=== PATIENT | male | born 1970 | race Caucasian/White ===

== ENCOUNTER 2018-07-21 23:33 | Emergency (ER) | payer BC, SELFPAY ==
[2018-07-21 23:34] VITALS: BP 125/81; PULSE 92; RESP 18; TEMP 36.8; O2SAT 98; BMI 30.8
[2018-07-22] MEDS: Ketorolac 30 MG/ML Syringe IV (00:15)
[2018-07-22] MEDS: 0.9% Normal Saline 1,000 ML 1000 ML IV (00:15)
[2018-07-22 00:21] LABS: Bacteria 0 SEEN /hpf (None Seen); Mucous, Urine 0 SEEN /hpf (<or=2+); Squamous Epithelial Cells - UA 0 SEEN /hpf (0-5)
[2018-07-22 00:22] LABS: Color, Urine Yellow (Yellow); Glucose, Dipstick Normal (Normal); Ketone-Dipstick Negative (Negative); Leukocyte Esterase-Dipstick Negative /ul (Negative); Nitrite-Dipstick Negative (Negative); Occult Blood-Urine 50 /ul (Negative); Protein-Dipstick Negative (Negative); Urine Bilirubin Dipstick Negative (Negative); Urine Clarity Clear (Clear); Urine Urobilinogen Normal (Normal); Urine pH 6.5 (5.0 - 8.0)
[2018-07-22 00:25] LABS: Absolute Lymphocyte Count 1.76 X10^3/ul (0.83-4.51); Absolute Neutrophil Count 9.6 X10^3/uL (2.0-7.7); Basophil# 0.02 X10^3/uL; Basophil% 0.2 % (0-1); Eosinophil# 0.08 X10^3/uL; Eosinophils% 0.6 % (0-5); Hematocrit 46.9 % (40-54); Hemoglobin 15.6 g/dl (13.0-16.5); Lymphocyte # 1.76 X10^3/ul (4.0); Lymphocyte % 14.1 % (19-41); Mean Corp Hgb Conc 33.3 g/gl (32-36); Mean Corpuscular Hgb 29.8 pg (27.0-32.0); Mean Corpuscular Volume 89.5 fL (80-94); Mean Platelet Vol. 8.8 fl (6.2-12.0); Monocyte# 0.94 X10^3/uL; Monocyte% 7.6 % (0-10); Neutrophil # 9.62 X10^3/uL (2.7-7.7); Neutrophil % 77.3 % (47-70); POSITIVE COUNT NO; POSITIVE DIFFERENTIAL NO; POSITIVE MORPHOLOGY NO; Platelet Count 289 K/mm3 (150-450); RBC Distribution Width SD 42.8 fl (35.1-43.9); Red Blood Count 5.24 M/mm3 (4.6-6.2); White Blood Count 12.5 K/mm3 (4.4-11.0)
[2018-07-22 00:29] LABS: Red Blood Cells-Urine 5-10 SEEN /hpf (0-5); White Blood Cells 0-5 SEEN /hpf (0-5)
[2018-07-22 00:41] LABS: Anion Gap 5 (5-15); BUN 10 mg/dL (7-18); BUN/Creat Ratio 10.5 RATIO (10-20); Chloride 108 mmol/L (98-107); Creatinine, Serum 0.95 mg/dL (0.70-1.30); EST Glomerular Filtration Rate 90 mL/min (>60); Est Glom Filt Rate - Afr Amer 109 mL/min (>60); Estimated Creatinine Clearance 97.16 ml/min; Glucose 101 mg/dL (74-106); Sodium Level 140 mmol/L (136-145)
--- NOTE | 2018-07-22 01:16 | ED.VISSUMM ---
- ER Visit Summary Date of Service: 07/22/18 Chief Complaint: Flank pain History of Present Illness: The patient is a 47 M who presents with flank pain. It began about 6 hours ago. It is intermittent, it waxes and wanes. He has a history of prior similar symptoms but it always resolved on its own. It was severe at home at 9 out of 10. However currently he only complains of mild pain. No urinary symptoms such as dysuria frequency urgency. No nausea vomiting diarrhea. Physical Examination: Afebrile vitals normal Moist mucous membranes No distress Heart regular rate and rhythm Lungs are clear Abdomen soft nontender nondistended Alert No CVA or flank tenderness Test Results: Labs notable for white blood cell count 12.5. Urinalysis shows 50 blood, 5-10 RBCs. Emergency Department Course and Treatment: Patient was treated here with IV fluids and Toradol. CT the flank shows mild left hydronephrosis and proximal hydroureter due to a 4 mm mid ureteral calculus. On reevaluation he is pain-free. I discussed expectant management and supportive care. He was given prescriptions for Percocet and Flomax. He was referred to urology for outpatient follow-up. He understands to return for new or worsening symptoms. All questions answered bedside. Patient discharged. Treatment Plan: [] Disposition: Discharge Impression: Ureterolithiasis This note was generated with [employer] dictation software. It may contain incorrect words, spelling, and punctuation that were not noted in review of the chart prior to signing ED Disposition - Plan for ED Patient: Referrals: Primo Velasquez MD [Primary Care Provider] -
--- NOTE | 2018-07-22 01:18 | ED.DEP ---
ED Disposition - Plan for ED Patient: Instructions: ED [facility] Prescriptions: Oxycodone HCl/Acetaminophen [Percocet 5/325] 1 tab PO Q6H PRN PRN 3 Days #12 tab PRN Reason: Pain Tamsulosin HCl [Flomax] 0.4 mg PO DAILY #14 cap Referrals: Primo Velasquez MD [Primary Care Provider] -
--- NOTE | 2018-07-22 01:19 | ED.DCSUM_ITS ---
- ER Visit Summary Date of Service: 07/22/18 Chief Complaint: Flank pain History of Present Illness: The patient is a 47 M who presents with flank pain. It began about 6 hours ago. It is intermittent, it waxes and wanes. He has a history of prior similar symptoms but it always resolved on its own. It was severe at home at 9 out of 10. However currently he only complains of mild pain. No urinary symptoms such as dysuria frequency urgency. No nausea vomiting diarrhea. Physical Examination: Afebrile vitals normal Moist mucous membranes No distress Heart regular rate and rhythm Lungs are clear Abdomen soft nontender nondistended Alert No CVA or flank tenderness Test Results: Labs notable for white blood cell count 12.5. Urinalysis shows 50 blood, 5-10 RBCs. Emergency Department Course and Treatment: Patient was treated here with IV fluids and Toradol. CT the flank shows mild left hydronephrosis and proximal hydroureter due to a 4 mm mid ureteral calculus. On reevaluation he is pain- free. I discussed expectant management and supportive care. He was given prescriptions for Percocet and Flomax. He was referred to urology for outpatient follow-up. He understands to return for new or worsening symptoms. All questions answered bedside. Patient discharged. Treatment Plan: [] Disposition: Discharge Impression: Ureterolithiasis This note was generated with [employer] dictation software. It may contain incorrect words, spelling, and punctuation that were not noted in review of the chart prior to signing ED Disposition - Plan for ED Patient: Referrals: Primo Velasquez MD [Primary Care Provider] -
--- NOTE | 2018-07-22 23:57 | CT_ITS ---
STUDY: CT ABDOMEN AND PELVIS WITHOUT CONTRAST REASON FOR EXAM: Male, 47 years old. Left lower abdominal pain. RADIATION DOSAGE (If Supplied By Facility): CTDIvol = ( 11.06 ) mGy, DLP = ( 613.53 ) mGycm TECHNIQUE: Transaxial images were obtained from the dome of the diaphragm to the symphysis pubis without oral contrast, and without intravenous contrast. Sagittal and coronal images were reconstructed. Individualized dose optimization techniques were used for this CT. COMPARISON: None. FINDINGS: The visualized lung bases are unremarkable. The visualized portions of the heart are within normal limits. Normal liver. Normal gallbladder and extrahepatic biliary system. Normal spleen. Normal pancreas. Normal bilateral adrenal glands. Normal right kidney. There is mild prominence of the left renal pelvis and the proximal left ureter. There is a 4 mm stone in the mid left ureter. There is mild left perinephric stranding. Normal visualized stomach. The small bowel loops are normal in caliber. There is fecal retention. There is non-visualization of the appendix. Normal abdominal aorta. Normal inferior vena cava. Normal retroperitoneum. Normal urinary bladder. There is a small umbilical hernia containing fat. There are mild degenerative changes in the lower thoracic and lumbar spine CT/Abdomen/Pelvis without Cont IMPRESSION: 1. Mild left hydronephrosis and proximal left hydroureter due to 4 mm stone in the mid left ureter. 2. No evidence of small bowel obstruction. 3. Nonvisualization of the appendix. Electronically Signed: Jerry Cotton MD at 0:45 EDT Tel , Service support ,
== END 2018-07-22 01:33 | disposition home or self-care (01) ==
PROVIDERS: Emergency Provider Emergency Medicine; Family Provider Family Medicine; PCP Family Medicine
DX: N13.2 Hydronephrosis with renal and ureteral calculous obstruction (principal)
CPT/HCPCS: 74176; 80048; 81001; 85025; 96361; 96374; 99283; J7030; A4216

== ENCOUNTER → 2023-10-07 | Outpatient (CLI) | payer BC, SELFPAY ==
[2023-10-07 17:51] LABS: Absolute Lymphocyte Count 2.79 X10^3/uL (0.83-4.51); Absolute Neutrophil Count 5.4 X10^3/uL (2.0-7.7); Basophil# 0.07 X10^3/uL; Basophil% 0.8 % (0-1); Eosinophil# 0.27 X10^3/uL; Eosinophils% 2.9 % (0-5); Hematocrit 45.2 % (40-54); Hemoglobin 14.9 g/dL (13.0-16.5); Lymphocyte # 2.79 X10^3/ul (0.83-4.51); Lymphocyte % 30.1 % (19-41); Mean Corpuscular Hgb 29.3 pg (27.0-32.0); Mean Corpuscular Volume 88.8 fL (80-94); Mean Platelet Vol. 9.6 fl (6.2-12.0); Monocyte# 0.72 X10^3/uL; Monocyte% 7.8 % (0-10); NRBC Flagged by Analyzer 0 % (0-5); Neutrophil # 5.39 X10^3/uL (2.7-7.7); Platelet Count 320 K/mm3 (150-450); RBC Distribution Width CV 12.6 % (11.6-14.6); RBC Distribution Width SD 41.2 fl (35.1-43.9); Red Blood Count 5.09 M/mm3 (4.6-6.2); White Blood Count 9.3 K/mm3 (4.4-11.0)
[2023-10-07 18:04] LABS: Vitamin D,25 Hydroxy 18.2 ng/mL
[2023-10-07 18:24] LABS: AST(SGOT) 14 U/L (15-37); Alanine Aminotransfer ALT/SGPT 22 U/L (16-61); Albumin, Serum 4.1 g/dL (3.2-5.0); Alkaline Phosphatase 82 U/L (45-117); Anion Gap 8 (5-15); BUN 10 mg/dL (7-18); BUN/Creat Ratio 10.7 RATIO (10-20); Calcium,Total 9.3 mg/dL (8.5-10.1); Chloride 104 mmol/L (98-107); Cholesterol 172 mg/dL (200); Creatinine, Serum 0.94 mg/dL (0.70-1.30); EST Glomerular Filtration Rate 90 mL/min (>60); Est Glom Filt Rate - Afr Amer 109 mL/min (>60); Globulin 4.1 g/dL (2.2-4.2); Glucose 95 mg/dL (74-106); High Density Lipoprotein 29 mg/dL; PSA,Total - Annual Screen 0.54 ng/mL (0.00-4.00); Protein, Total 8.2 g/dL (6.4-8.2); Sodium Level 137 mmol/L (136-145); Thyroid Stim Hormone (TSH) 2.41 uIU/mL (0.358-3.74); Triglycerides 125 mg/dL; Very Low Density Lipoprotein 25 mg/dL (5-40)
== END | disposition home or self-care (01) ==
PROVIDERS: PCP Family Medicine; Visit Provider Family Medicine
DX: Z12.11 Encounter for screening for malignant neoplasm of colon (principal); Z13.220 Encounter for screening for lipoid disorders; Z12.5 Encounter for screening for malignant neoplasm of prostate; Z13.1 Encounter for screening for diabetes mellitus
CPT/HCPCS: 36415; 80053; 80061; 82306; 84153; 84443; 85025; G0103